=== PATIENT | male | born 2000 | race Caucasian/White ===

== ENCOUNTER 2021-09-23 02:05 | Emergency (ER) | payer BC ==
[2021-09-23] MEDS ORDERED: Diphtheria,Pertussis(Acell),Tetanus Vaccine 0.5 ML Syringe ONE (02:09)
[2021-09-23] MEDS ORDERED: Lactated Ringers 1,000 ML IV STA (02:11)
[2021-09-23] MEDS ORDERED: Diphtheria,Pertussis(Acell),Tetanus Vaccine 0.5 ML Syringe IM ONE (02:11)
[2021-09-23] MEDS ORDERED: Lidocaine 1% 10 ML MDV INJECT ONE (02:18)
[2021-09-23] MEDS ORDERED: Lidocaine 1% with EPINEPHrine 1:100,000 20 ML MDV INJECT ONE (02:18)
[2021-09-23 02:56] LABS: BLOOD UREA NITROGEN,BUN 13 mg/dL (7.0-18.0); CARBON DIOXIDE,CO2 27.9 mmol/L (21.0-32.0); CHLORIDE,CL 103 mmol/L (98-107); GLUCOSE RANDOM 100 mg/dL (74-106); POTASSIUM,K 5.1 mmol/L (3.5-5.1); SODIUM,NA 140 mmol/L (136-148)
[2021-09-23] MEDS ORDERED: Iopamidol 755 Mg/ML 100 ML Bottle IVPUSH ONE (03:12)
[2021-09-23] MEDS ORDERED: Ketorolac 30 MG/ML SDV IVPUSH ONE (04:22)
[2021-09-23] MEDS ORDERED: Apixaban 5 MG Tab PO STA (04:51)
== END 2021-09-23 05:15 | disposition home or self-care (01) ==
LOC: MW.ED 02:05
DX: S01.01XA Laceration without foreign body of scalp, initial encounter (principal); S01.111A Laceration without foreign body of right eyelid and periocular area, initial encounter; I26.99 Other pulmonary embolism without acute cor pulmonale; R55 Syncope and collapse; Z79.01 Long term (current) use of anticoagulants; Z23 Encounter for immunization; W26.8XXA Contact with other sharp object(s), not elsewhere classified, initial encounter
CPT/HCPCS: 12002; 12013; 36415; 71045; 71275; 80053; 84484; 85025; 85610; 90471; 90715; 93005; 96374; 99285; A9270; J1885; J7120; Q9967